=== PATIENT | male | born 1975 | race Two or more races ===

== ENCOUNTER 2017-09-20 09:24 | Outpatient (CLI) | payer OTHER ==
[~2017-09-20 09:24] MED LIST: ALDACTONE25 MG; ATACAND32 MG PO; COREG CR40 MG; LANOXIN0.25 MG; LASIX40 MG; MOTRIN50 MG PO; NAPROSYN375 MG PO; THEO-24100 MG; ZESTRIL10 MG
== END 2017-09-20 10:00 | disposition home or self-care (01) ==
LOC: NUCLEAR 09:24
DX: I50.22 Chronic systolic (congestive) heart failure (principal)

== ENCOUNTER 2017-11-15 15:35 | Emergency (ER) | payer OTHER ==
[~2017-11-15] VITALS: Ht 165.1 cm; Wt 10.9 kg
== END 2017-11-15 17:44 | disposition home or self-care (01) ==
LOC: ER 15:35
DX: M79.601 Pain in right arm (principal); M79.621 Pain in right upper arm

== ENCOUNTER 2019-10-18 18:34 | Emergency (ER) | payer OTHER ==
[~2019-10-18] VITALS: Ht 165.1 cm; Wt 108.9 kg
[2019-10-18] MEDS ORDERED: XANAX1 MG (19:13)
== END 2019-10-18 22:07 | disposition home or self-care (01) ==
LOC: ER 18:34
DX: N43.2 Other hydrocele (principal)

== ENCOUNTER 2019-10-30 12:06 | Emergency (ER) | payer OTHER ==
[~2019-10-30] VITALS: Ht 165.1 cm; Wt 108.9 kg
[~2019-10-30 12:06] MED LIST changes: +XANAX1 MG
== END 2019-10-30 13:20 | disposition home or self-care (01) ==
LOC: ER 12:06
DX: R10.84 Generalized abdominal pain (principal)

== ENCOUNTER 2019-11-23 06:24 | Emergency (ER) | payer OTHER ==
[~2019-11-23] VITALS: Ht 165.1 cm; Wt 104.3 kg
[2019-11-23] MEDS ORDERED: CARDIZEM30 MG (06:45)
== END 2019-11-23 09:38 | disposition home or self-care (01) ==
LOC: ER 06:24
DX: K43.9 Ventral hernia without obstruction or gangrene (principal)

== ENCOUNTER 2024-06-13 09:32 | Emergency (ER) | payer OTHER ==
[~2024-06-13] VITALS: Ht 165.1 cm; Wt 108.9 kg
[~2024-06-13 09:32] MED LIST changes: +CARDIZEM30 MG
[2024-06-13 10:59] LABS: HEMOGLOBIN 16.9 g/dL (13-16.00); MEAN CELL VOLUME 87.3 fL (80.0-100.00); MEAN CORPUSCULAR HEMOGLOBIN 30.1 pg (27.00-32.0); MEAN CORPUSCULAR HGB CONC 34.5 g/dl (32.0-36.0); PLATELET COUNT 215 K/uL (150-450); RED BLOOD COUNT 5.62 M/uL (4.00-6.00); RED CELL DISTRIBUTION WIDTH 13.6 % (11.5-14.5)
[2024-06-13 11:39] LABS: BILIRUBIN TOTAL 1.53 mg/dL (0.3-1.2); CALCIUM 9.7 mg/dL (8.5-10.1); CREATININE SERUM 0.8 mg/dL (0.70-1.30); GFR 101.91; GLOBULINA 3.3 G/DL (2.4-3.5); POTASSIUM 4.68 mEq/L (3.5-5.1); TOTAL PROTEIN 7.3 gm/dL (6.4-8.2)
== END 2024-06-13 14:30 | disposition home or self-care (01) ==
LOC: ER 09:33
PROVIDERS: General Practice
DX: R53.1 Weakness (principal); Z95.810 Presence of automatic (implantable) cardiac defibrillator; Z88.6 Allergy status to analgesic agent; E78.00 Pure hypercholesterolemia, unspecified; I48.91 Unspecified atrial fibrillation; Z79.01 Long term (current) use of anticoagulants; I25.2 Old myocardial infarction; I25.10 Atherosclerotic heart disease of native coronary artery without angina pectoris

== ENCOUNTER 2024-08-15 19:58 | Emergency (ER) | payer OTHER ==
[~2024-08-15] VITALS: Ht 165.1 cm; Wt 99.8 kg
[2024-08-15] MEDS ORDERED: CEFTRIAXONE SODIUM 2,000 MG VIAL IV ONE (23:45)
[2024-08-15] MEDS ORDERED: CEFTRIAXONE SODIUM 2,000 MG VIAL ONE (23:59)
[2024-08-16 00:36] LABS: BASO % 0.6 % (0.1-1.2); HEMATOCRIT 45.3 % (40.1-51.0); HEMOGLOBIN 15.6 g/dL (13.7-17.5); LYMPH # 1.56 (1.18-3.74); LYMPH % 23.7 % (19.3-53.1); MEAN CORPUSCULAR HEMOGLOBIN 30.2 pg (25.6-32.2); MONO % 9.1 % (4.7-12.5); NEUT # 4.18 (1.56-6.13); NEUT % 63.4 % (34.0-71.1); PLATELET COUNT 197 K/uL (163-369); RED BLOOD COUNT 5.17 M/uL (4.63-6.08); RED CELL DISTRIBUTION WIDTH 12.7 % (11.6-14.4)
[2024-08-16 01:02] LABS: ERYTHROCYTE SEDIMENTATION RATE 13 mm/hr (0-20)
[2024-08-16 01:06] LABS: ALBUMIN 3.6 gm/dL (3.4-5.0); BILIRUBIN TOTAL 0.76 mg/dL (0.3-1.2); CREATININE SERUM 0.79 mg/dL (0.70-1.30); GFR 103.4; GLOBULINA 3.6 G/DL (2.4-3.5); POTASSIUM 3.81 mEq/L (3.5-5.1); TOTAL PROTEIN 7.2 gm/dL (6.4-8.2)
== END 2024-08-16 02:45 | disposition home or self-care (01) ==
LOC: ER 19:59
PROVIDERS: Preventive Medicine Public Health & General Preventive Medicine
DX: L02.01 Cutaneous abscess of face (principal); I10 Essential (primary) hypertension; Z88.9 Allergy status to unspecified drugs, medicaments and biological substances
CPT/HCPCS: 36415; 70487; 96365; 99284; J0696; Q9965

== ENCOUNTER 2024-11-28 05:16 | Emergency (ER) | payer OTHER ==
[~2024-11-28] VITALS: Ht 165.1 cm; Wt 99.8 kg
[2024-11-28] MEDS ORDERED: HYDROXYZINE PAM25 MG PO (05:42)
[2024-11-28] MEDS ORDERED: CLONAZEPAM1 MG PO (05:42)
[2024-11-28] MEDS ORDERED: ELIQUIS5 MG PO (05:43)
[2024-11-28] MEDS ORDERED: PREDNISONE10 M2 PO (05:43)
[2024-11-28] MEDS ORDERED: SIMVASTATIN20 MG PO (05:43)
[2024-11-28] MEDS ORDERED: LISINOPRIL5 MG PO (05:44)
[2024-11-28] MEDS ORDERED: FAMOTIDINE40 MG PO (05:44)
[2024-11-28] MEDS ORDERED: KETOROLAC TROMETHAMINE 10 MG TABLET PO STA (06:20)
[2024-11-28] MEDS ORDERED: ACETAMINOPHEN 500 MG GEL..CAP PO STA (06:22)
[2024-11-28] MEDS ORDERED: ACETAMINOPHEN 500 MG GEL..CAP PO ONE (06:54)
[2024-11-28] MEDS ORDERED: MUPIROCIN22 GM TOP (07:31)
== END 2024-11-28 07:45 ==
LOC: ER 05:17
DX: S90.111A Contusion of right great toe without damage to nail, initial encounter (principal); X58.XXXA Exposure to other specified factors, initial encounter; Y93.89 Activity, other specified; Y92.013 Bedroom of single-family (private) house as the place of occurrence of the external cause; Y99.9 Unspecified external cause status; I10 Essential (primary) hypertension; Z88.8 Allergy status to other drugs, medicaments and biological substances